=== PATIENT | male | born 1950 | race Hispanic/Latino ===

== ENCOUNTER 2018-10-31 07:03 | Emergency (ER) | payer OTHER ==
[2018-10-31] MEDS ORDERED: MEPERIDINE HCL 25 MG/0.5 ML ONE ×4 (09:22→17:13)
[2018-10-31] MEDS ORDERED: NA CHLORIDE 0.9% 1,000 ML ONE ×2 (09:22→15:01)
[2018-10-31 09:50] LABS: Absolute Lymphocytes (CBC) 0.3 K/uL (0.7-4.9); Basophils % 0.1 % (0-1.3); Hematocrit 46.7 % (39.6-49.0); Lymphocytes % 1.5 % (15.3-44.8); MPV 10.4 fL (7.6-11.3)
[2018-10-31 09:54] LABS: ALT/SGPT 24 U/L (12-78); AST/SGOT 24 U/L (15-37); Albumin 3.8 g/dL (3.4-5.0); Alkaline Phosphatase 84 U/L (45-117); BUN Blood Urea Nitrogen 14 mg/dL (7-18); Bicarbonate 29 mmol/L (21-32); Bilirubin Direct 0.3 mg/dL (0-0.2); Bilirubin Total 0.9 mg/dL (0.2-1.0); Glucose Level 134 mg/dL (74-106); Lipase 67 U/L (73-393); Potassium 3.7 mmol/L (3.5-5.1); Protein, Total 8.5 g/dL (6.4-8.2); Sodium Level 136 mmol/L (136-145)
--- NOTE | 2018-10-31 10:08 | EKG ---
Test Date: 2018-10-31 Test Time: 09:37:14 Paralegal: TOMER MEASUREMENT RESULTS: Intervals: Rate: 91 KS: 154 QRSD: 84 QT: 386 QTc: 474 [place]: P: 41 KS: 154 QRS: -46 T: 43 INTERPRETIVE STATEMENTS: Normal sinus rhythm Left axis deviation Possible Inferior infarct, age undetermined Abnormal ECG No previous ECG available for comparison Electronically Signed On 10-31-18 10:07:04 CDT by Emil Valle
--- NOTE | 2018-10-31 10:46 | RAD REPORT ---
EXAM DESCRIPTION: CTAbdomen Pelvis W Contrast - 10/31/2018 10:32 am CLINICAL HISTORY: Abdominal pain. ABD PAIN COMPARISON: CT ABD PELVIS W CONTRAST dated 08/24/2014 TECHNIQUE: Biphasic CT imaging of the abdomen and pelvis was performed with 100 ml non-ionic IV cont rast. All CT scans are performed using dose optimization technique as appropriate and may include automated exposure control or mA/KV adjustment according to patient size. FINDINGS: Mild linear opacities in both posterior lung bases are seen. Mild contrast is seen in the distal esophagus. The liver demonstrates mild fatty infiltration. The spleen, pancreas, adrenal glands are normal. Vannesa ral right renal cysts are present. No left renal mass. No hydronephrosis. Moderate inflammation is seen along the transverse mesocolon not along the greater curvature of the s tomach were postsurgical changes are present. Tiny air bubbles are seen in the wall of the stomach in this region (image 21/106). Fecal retention is seen in the colon. No evidence of bowel obstruction, intra- abdominal abscess or significant free fluid. No free air is evident. No evidence of significa nt lymphadenopathy. No suspicious bony findings. IMPRESSION: Moderate inflammation is seen in the transverse mesocolon with small air bubbles noted w ithin the wall of the postsurgical stomach greater curvature region. This may indicate ulcer disease in this region. Consider upper endoscopy followup assessment. Prominent fecal retention in the colon.
--- NOTE | 2018-10-31 11:29 | ER ---
Nurse's Notes [facility] Name: Rory Nuñez Age: 67 yrs Sex: Male : 1950 Arrival Date: 10/31/2018 Time: 07:56 Bed 20 Private MD: Diagnosis: Gastric Ulcer;Upper GI bleed;Melena Presentation: 10/31 08:11 Presenting complaint: Patient states: Generalized abd pain and nausea that began 3 days aa5 ago. Denies vomiting, denies diarrhea. Transition of care: patient was not received from another setting of care. Onset of symptoms was October 2018. Risk Assessment: Do you want to hurt yourself or someone else? Patient reports no desire to harm self or others. Initial Sepsis Screen: Does the patient meet any 2 criteria? No. Patient's initial sepsis screen is negative. Does the patient have a suspected source of infection? No. Patient's initial sepsis screen is negative. Care prior to arrival: None. 08:11 Acuity: SRUTHI 3 aa5 08:11 Method Of Arrival: Wheelchair aa5 Historical: - Allergies: 08:14 Morphine (Vomiting); aa5 08:14 Codeine (Vomiting); aa5 - PMHx: 08:14 Hypertension; Stomach cancer; PTSD; hemorrhoids; aa5 - PSHx: 08:12 gastroectomy; neck sx; lower back; aa5 - Immunization history:: Adult Immunizations unknown. - Social history:: Smoking status: Patient/guardian denies using tobacco. - Ebola Screening: : No symptoms or risks identified at this time. - Family history:: not pertinent. - Hospitalizations: : No recent hospitalization is reported. Screenin:17 Abuse screen: Denies threats or abuse. Denies injuries from another. Nutritional jl7 screening: No deficits noted. Tuberculosis screening: No symptoms or risk factors identified. Fall Risk IV access (20 points). Total Haas Fall Scale indicates No Risk (0-24 pts). Assessment: 09:17 General: Appears in no apparent distress. uncomfortable, Behavior is calm, cooperative, jl7 appropriate for age. Pain: Complains of pain in abdomen diffusely Pain does not radiate. Pain currently is 10 out of 10 on a pain scale. Quality of pain is described as sharp, Pain began 2-3 days ago. Is continuous. Neuro: Level of Consciousness is awake, alert, obeys commands, Oriented to person, place, time, situation. Cardiovascular: Patient's skin is warm and dry. Respiratory: Airway is patent Respiratory effort is even, unlabored, Respiratory pattern is regular, symmetrical. GI: Bowel sounds present X 4 quads. Abd is soft X 4 quads Abdomen is tender to palpation X 4 quads. : No signs and/or symptoms were reported regarding the genitourinary system. EENT: No signs and/or symptoms were reported regarding the EENT system. Derm: Skin is pink, warm \T\ dry. Musculoskeletal: No signs and/or symptoms reported regarding the musculoskeletal system. 09:55 Reassessment: WBC 22.8, ERD notified. jl7 10:30 Reassessment: Pt moaning and c/o increased pain, requesting more pain medication, ERD jl7 notified see MAR for orders. 11:00 Reassessment: Reassessment: Patient appears in no apparent distress at this time. Pt jl7 laying in bed, eyes closed, respirations even and unlabored, no signs of distress noted. 12:11 Reassessment: Assisted pt to bathroom. jl7 14:45 Reassessment: ERD notified of HR a temp, see MAR for orders. jl7 15:57 Reassessment: Patient appears in no apparent distress at this time. Patient and/or jl7 family updated on plan of care and expected duration. Pain level reassessed. Patient is alert, oriented x 3, equal unlabored respirations, skin warm/dry/pink. Vital Signs: 08:14 BP 124 / 80; Pulse 91; Resp 18 S; Temp 97.6(O); Pulse Ox 97% on R/A; Weight 75.75 kg aa5 (R); Height 5 ft. 8 in. (172.72 cm) (R); Pain 10/10; 09:58 BP 142 / 92; Pulse 87; Resp 16 S; Pulse Ox 95% on R/A; jl7 10:45 BP 109 / 67; Pulse 75; Resp 16 S; Pulse Ox 96% on R/A; jl7 11:30 BP 108 / 65; Pulse 79; Resp 16 S; Pulse Ox 96% on R/A; jl7 12:30 BP 127 / 84; Pulse 81; Resp 16 S; Pulse Ox 97% on R/A; jl7 13:30 BP 115 / 83; Pulse 87; Resp 16 S; Pulse Ox 96% on R/A; jl7 14:45 BP 119 / 65; Pulse 111; Resp 16; Temp 100.7(O); Pulse Ox 94% ; jl7 15:48 BP 104 / 61; Pulse 87; Resp 14 S; Temp 100; Pulse Ox 95% on R/A; jl7 08:14 Body Mass Index 25.39 (75.75 kg, 172.72 cm) aa5 ED Course: 07:56 Patient arrived in ED. mr 08:11 Arm band placed on. aa5 08:12 Triage completed. aa5 09:00 Justin Wright MD is Attending Physician. rn 09:02 Britt Ortiz RN is Primary Nurse. jl7 09:17 Patient has correct armband on for positive identification. Placed in gown. Bed in low jl7 position. Call light in reach. Side rails up X 1. lunchroom monitor on. Pulse ox on. NIBP on. Warm blanket given. 09:17 Initial lab(s) drawn, by de, sent to lab. Inserted saline lock: 20 gauge in right jl7 antecubital area, using aseptic technique. Blood collected. 09:40 EKG done, by ekg monitor tech. reviewed by Justin Wright MD. at1 10:39 CT Abd/Pelvis - PO and IV Contrast In Process Unspecified. EDMS 11:27 Armen Jackson MD is Hospitalizing Provider. rn 15:57 No provider procedures requiring assistance completed. Patient transferred, IV remains jl7 in place. intact, No redness/swelling at site. Administered Medications: 09:28 Drug: Zofran 4 mg Route: IVP; Site: right antecubital; jl7 09:40 Follow up: Response: No adverse reaction; Nausea is decreased jl7 09:30 Drug: NS 0.9% 1000 ml Route: IV; Rate: 1000 ml; Site: right antecubital; jl7 10:30 Follow up: Response: No adverse reaction; IV Status: Completed infusion; IV Intake: jl7 1000ml 09:30 Drug: Demerol 25 mg Route: IVP; Site: right antecubital; jl7 09:41 Follow up: Response: No adverse reaction; Pain is decreased jl7 10:42 Drug: Demerol 25 mg Route: IVP; Site: right antecubital; jl7 11:00 Follow up: Response: No adverse reaction; Pain is decreased jl7 12:10 Drug: ProTONIX 40 mg Route: IVP; Site: left antecubital; jl7 12:20 Follow up: Response: No adverse reaction jl7 12:15 Drug: Rocephin 1 grams Route: IV; Rate: calculated rate; Site: right antecubital; jl7 12:18 Follow up: Response: No adverse reaction; IV Status: Completed infusion jl7 12:19 Drug: ProTONIX 8 mg/hr Route: IV; Rate: 25 ml/hr; Site: right antecubital; jl7 15:59 Follow up: Response: No adverse reaction; IV Status: Infusion continued upon transfer jl7 12:19 Not Given (Duplicate Order): Rocephin - (cefTRIAXone) 1 grams IVPB once over 30 mins; jl7 (mix in 50 mL NS) 13:55 Drug: Demerol 25 mg Route: IVP; Site: right antecubital; mg2 14:30 Follow up: Response: No adverse reaction; Pain is decreased jl7 13:55 Drug: Phenergan 12.5 mg Route: IVP; Site: right antecubital; mg2 14:30 Follow up: Response: No adverse reaction; Nausea is decreased jl7 15:11 Drug: NS 0.9% 1000 ml Route: IV; Rate: 1000 ml; Site: right antecubital; jl7 15:59 Follow up: Response: No adverse reaction; IV Status: Completed infusion; IV Intake: jl7 1000ml 15:11 Drug: Tylenol 1000 mg Route: PO; jl7 15:47 Follow up: Response: No adverse reaction; Temperature is decreased jl7 17:16 Drug: Demerol 25 mg Route: IVP; Site: right antecubital; mg2 17:16 Follow up: Response: No adverse reaction; administered prior to transfer mg2 Intake: 10:30 IV: 1000ml; Total: 1000ml. jl7 15:59 IV: 1000ml; Total: 2000ml. jl7 Outcome: 11:27 Decision to Hospitalize by Provider. rn 14:42 ER care complete, transfer ordered by MD. rn 15:57 Transferred by ground EMS to [facility] Transfer form completed. jl7 15:57 Condition: stable 15:57 Discharge instructions given to patient, Instructed on the need for transfer, Demonstrated understanding of instructions. 17:33 Patient left the ED. jl7 Signatures: Dispatcher [employer] Malini Galvez, MD MD juan j Anderson Audri RN RN aa5 Martine Hannon, property management accountant EKG Tat1 Britt Ortiz RN RN jl7 René Mcnamara RN RN mg2 Corrections: (The following items were deleted from the chart) 08:15 08:14 BP 124 / 80; Pulse 91bpm; Resp 18bpm; Spontaneous; Pulse Ox 97% RA; Temp 97.6F aa5 Oral; 75.75 kg Reported; Height 5 ft. 8 in. Reported; BMI: 25.3; aa5 15:57 15:48 BP 104 / 61; Pulse 87bpm; Resp 14bpm; Spontaneous; Pulse Ox 95% RA; jl7 jl7
--- NOTE | 2018-10-31 11:29 | EDPHYS ---
Physician Documentation [facility] Name: Rory Nuñez Age: 67 yrs Sex: Male : 1950 Arrival Date: 10/31/2018 Time: 07:56 Bed 20 Private MD: ED Physician Justin Wright HPI: 10/31 09:43 This 67 yrs old Male presents to ER via Wheelchair with complaints of rn Abdominal Pain. 09:43 The patient presents with abdominal pain in the epigastric area. Onset: The rn symptoms/episode began/occurred 3 day(s) ago. The symptoms do not radiate. Associated signs and symptoms: Pertinent positives: anorexia, constipation, Pertinent negatives: blood in stools, chest pain, diarrhea, dysuria, fever. The symptoms are described as achy, sharp. Modifying factors: The symptoms are alleviated by nothing, the symptoms are aggravated by food. Severity of pain: At its worst the pain was moderate in the emergency department the pain is unchanged. The patient has experienced similar episodes in the past. Reports upper abd pain, began 3 days ago, constant, worse with food, no trauma, denies GI bleed. NO chest pain/sob/cough. Reports constipation with last BM yesterday. . Historical: - Allergies: 08:14 Morphine (Vomiting); aa5 08:14 Codeine (Vomiting); aa5 - PMHx: 08:14 Hypertension; Stomach cancer; PTSD; hemorrhoids; aa5 - PSHx: 08:12 gastroectomy; neck sx; lower back; aa5 - Immunization history:: Adult Immunizations unknown. - Social history:: Smoking status: Patient/guardian denies using tobacco. - Ebola Screening: : No symptoms or risks identified at this time. - Family history:: not pertinent. - Hospitalizations: : No recent hospitalization is reported. ROS: 09:43 Constitutional: Negative for fever, chills, and weight loss, Eyes: Negative for injury, rn pain, redness, and discharge, Neck: Negative for injury, pain, and swelling, Cardiovascular: Negative for chest pain, palpitations, and edema, Respiratory: Negative for shortness of breath, cough, wheezing, and pleuritic chest pain, Abdomen/GI: Negative for vomiting, diarrhea MS/Extremity: Negative for injury and deformity, Skin: Negative for injury, rash, and discoloration, Neuro: Negative for headache, weakness, numbness, tingling, and seizure. Exam: 09:43 Constitutional: This is a well developed, well nourished patient who is awake, alert, rn and in no acute distress. Head/Face: Normocephalic, atraumatic. Eyes: Pupils equal round and reactive to light, extra-ocular motions intact. Lids and lashes normal. Conjunctiva and sclera are non-icteric and not injected. Cornea within normal limits. Periorbital areas with no swelling, redness, or edema. ENT: dry MM Neck: Trachea midline, no thyromegaly or masses palpated, and no cervical lymphadenopathy. Supple, full range of motion without nuchal rigidity, or vertebral point tenderness. No Meningismus. Cardiovascular: Regular rate and rhythm. No pulse deficits. Respiratory: Lungs have equal breath sounds bilaterally, clear to auscultation. No increased work of breathing, no retractions or nasal flaring. Abdomen/GI: soft, mild epigastric and mid abd tenderness MS/ Extremity: Pulses equal, no cyanosis. Neuro: Awake and alert, GCS 15, oriented to person, place, time, and situation. Cranial nerves II-XII grossly intact. Motor strength 5/5 in all extremities. Sensory grossly intact. Vital Signs: 08:14 BP 124 / 80; Pulse 91; Resp 18 S; Temp 97.6(O); Pulse Ox 97% on R/A; Weight 75.75 kg aa5 (R); Height 5 ft. 8 in. (172.72 cm) (R); Pain 10/10; 09:58 BP 142 / 92; Pulse 87; Resp 16 S; Pulse Ox 95% on R/A; jl7 10:45 BP 109 / 67; Pulse 75; Resp 16 S; Pulse Ox 96% on R/A; jl7 11:30 BP 108 / 65; Pulse 79; Resp 16 S; Pulse Ox 96% on R/A; jl7 12:30 BP 127 / 84; Pulse 81; Resp 16 S; Pulse Ox 97% on R/A; jl7 13:30 BP 115 / 83; Pulse 87; Resp 16 S; Pulse Ox 96% on R/A; jl7 14:45 BP 119 / 65; Pulse 111; Resp 16; Temp 100.7(O); Pulse Ox 94% ; jl7 15:48 BP 104 / 61; Pulse 87; Resp 14 S; Temp 100; Pulse Ox 95% on R/A; jl7 08:14 Body Mass Index 25.39 (75.75 kg, 172.72 cm) aa5 MDM: 09:00 Patient medically screened. rn 11:22 Differential diagnosis: diverticulitis, gastritis, gastroesophageal reflux disease, GI rn Bleed, non-specific abd pain, pancreatitis, Peptic Ulcer Disease. Data reviewed: vital signs, nurses notes, lab test result(s), radiologic studies, CT scan, and as a result, I will admit patient. Counseling: I had a detailed discussion with the patient and/or guardian regarding: the historical points, exam findings, and any diagnostic results supporting the discharge/admit diagnosis, lab results, radiology results, the need for further work-up and treatment in the hospital. Admission orders: after a detailed discussion of the patient's condition and case, the admit orders are written by me. ED course: Pt with elevated WBC, CT shows inflammation around stomach, possible ulcer disease, air in gastric wall, reports melena and maroon blood, started on protonix, and will admit for further care/EGD.. 13:39 ED course: At time of admission, Dr. Jackson requested transfer to [place] given [place] patient rn and we have to try to transfer there first prior to admission. Still waiting on [place] to call back, causing long delay of disposition. . 10/31 09:14 Order name: Basic Metabolic Panel; Complete Time: 09:59 rn 10/31 09:14 Order name: CBC with Diff; Complete Time: 13:48 rn 10/31 09:14 Order name: Creatinine for Radiology; Complete Time: :59 rn 10/31 09:14 Order name: Hepatic Function; Complete Time: 09:59 rn 10/31 09:14 Order name: Lipase; Complete Time: 09:59 rn 10/31 09:14 Order name: CT Abd/Pelvis - PO and IV Contrast; Complete Time: 11:44 rn 10/31 12:05 Order name: CBC Smear Scan; Complete Time: 13:48 EDMS 10/31 09:14 Order name: IV Saline Lock; Complete Time: 09:30 rn 10/31 09:14 Order name: Labs collected and sent; Complete Time: 09:30 rn 10/31 09:14 Order name: EKG; Complete Time: 09:16 rn 10/31 09:14 Order name: EKG - Nurse/Tech; Complete Time: 09:41 rn Administered Medications: 09:28 Drug: Zofran 4 mg Route: IVP; Site: right antecubital; jl7 09:40 Follow up: Response: No adverse reaction; Nausea is decreased jl7 09:30 Drug: NS 0.9% 1000 ml Route: IV; Rate: 1000 ml; Site: right antecubital; jl7 10:30 Follow up: Response: No adverse reaction; IV Status: Completed infusion; IV Intake: jl7 1000ml 09:30 Drug: Demerol 25 mg Route: IVP; Site: right antecubital; jl7 09:41 Follow up: Response: No adverse reaction; Pain is decreased jl7 10:42 Drug: Demerol 25 mg Route: IVP; Site: right antecubital; jl7 11:00 Follow up: Response: No adverse reaction; Pain is decreased jl7 12:10 Drug: ProTONIX 40 mg Route: IVP; Site: left antecubital; jl7 12:20 Follow up: Response: No adverse reaction jl7 12:15 Drug: Rocephin 1 grams Route: IV; Rate: calculated rate; Site: right antecubital; jl7 12:18 Follow up: Response: No adverse reaction; IV Status: Completed infusion jl7 12:19 Drug: ProTONIX 8 mg/hr Route: IV; Rate: 25 ml/hr; Site: right antecubital; jl7 15:59 Follow up: Response: No adverse reaction; IV Status: Infusion continued upon transfer jl7 12:19 Not Given (Duplicate Order): Rocephin - (cefTRIAXone) 1 grams IVPB once over 30 mins; jl7 (mix in 50 mL NS) 13:55 Drug: Demerol 25 mg Route: IVP; Site: right antecubital; mg2 14:30 Follow up: Response: No adverse reaction; Pain is decreased jl7 13:55 Drug: Phenergan 12.5 mg Route: IVP; Site: right antecubital; mg2 14:30 Follow up: Response: No adverse reaction; Nausea is decreased jl7 15:11 Drug: NS 0.9% 1000 ml Route: IV; Rate: 1000 ml; Site: right antecubital; jl7 15:59 Follow up: Response: No adverse reaction; IV Status: Completed infusion; IV Intake: jl7 1000ml 15:11 Drug: Tylenol 1000 mg Route: PO; jl7 15:47 Follow up: Response: No adverse reaction; Temperature is decreased jl7 17:16 Drug: Demerol 25 mg Route: IVP; Site: right antecubital; mg2 17:16 Follow up: Response: No adverse reaction; administered prior to transfer mg2 Disposition: 10/31/18 14:42 Transfer ordered to [facility]. Diagnosis are Gastric Ulcer, Upper GI bleed, Melena. - Reason for transfer: Higher level of care. - Accepting physician is Dr. Vergara. - Condition is Stable. - Problem is new. - Symptoms have improved. Signatures: Dispatcher [employer] EDMS Justin Wright MD MD rn Calderon, Audri RN RN aa5 Britt Ortiz RN RN jl7 René Mcnamara RN RN mg2 Corrections: (The following items were deleted from the chart) 14:41 11:27 Hospitalization Ordered by Armen Jackson MD for Inpatient Admission. Preliminary rn diagnosis is Gastritis, unspecified, with bleeding; Gastric ulcer; Upper GI bleed. Bed requested for Telemetry/MedSurg (Inpatient). Status is Inpatient Admission. Condition is Stable. Problem is new. Symptoms have improved. UTI on Admission? No. rn 17:33 14:42 10/31/2018 14:42 Transfer ordered to [address] Diagnosis is Gastric Ulcer; Upper GI bleed; Melena. Reason for transfer: Higher level of care. Accepting physician is Dr. Vergara. Condition is Stable. Problem is new. Symptoms have improved. rn
[2018-10-31] MEDS ORDERED: CEFTRIAXONE/SWI 1gm 1 GM/10 ML SYR ONE (11:39)
[2018-10-31] MEDS ORDERED: PANTOPRAZOLE 40 MG INJ ONE (11:39)
[2018-10-31] MEDS ORDERED: PANTOPRAZOLE INJ 80 MG in NA CHLORIDE 0.9% 250 ML IV ONE (12:00)
[2018-10-31 12:01] LABS: Blood Morphology Comment NOT SEEN (NOT SEEN); Platelet Estimate ADEQ; Urine White Blood Cell Casts OK
[2018-10-31] MEDS ORDERED: PROMETHAZINE 25 MG/ML VIAL ONE (13:52)
[2018-10-31] MEDS ORDERED: ACETAMINOPHEN 500 MG TAB ONE (14:58)
== END 2018-10-31 17:33 ==
LOC: ER 07:03
DX: K25.9 Gastric ulcer, unspecified as acute or chronic, without hemorrhage or perforation (principal); K92.1 Melena; I10 Essential (primary) hypertension; Z85.028 Personal history of other malignant neoplasm of stomach; Z88.5 Allergy status to narcotic agent
CPT/HCPCS: 96365; 96361; 93005; 85025; 80048; 36415; 80076; 83690; 74177; 96375; 99285; Q9967; J2550; C9113 ×2; J2175 ×4; J0696; J7030 ×2